=== PATIENT | female | born 1985 | race Caucasian/White ===

== ENCOUNTER 2020-04-26 08:29 | Outpatient (CLI) | payer BC ==
--- NOTE | 2020-04-26 09:22 | MMO ---
Bilateral MAMMO Bilat Diag [facility]. CLINICAL HISTORY: Patient is 34 years old and is seen for diagnostic exam,palpable abnormality, non-bloody discharge and pain in the right breast. The patient has the following family history of breast cancer: paternal aunt. The patient has no personal history of cancer. VIEWS: The views performed were: bilateral craniocaudal with tomosynthesis; bilateral mediolateral oblique with tomosynthesis; and bilateral mediolateral with tomosynthesis. FILMS COMPARED: The present examination has been compared to a prior imaging study performed at [facility] on 04/26/2020. This study has been interpreted with the assistance of computer-aided detection. MAMMOGRAM FINDINGS: There are scattered fibroglandular densities. No mammographic or sonograhic abnormality is seen at the site of palpable concern (4:00) and the subaerolar region in the right breast. There are no suspicious masses, suspicious calcifications, or new areas of architectural distortion. IMPRESSION: THERE IS NO MAMMOGRAPHIC EVIDENCE OF MALIGNANCY. AGE APPROPRIATE SCREENING BASED ON RISK FACTORS IS RECOMMENDED. THE RESULTS OF THIS EXAM WERE SENT TO THE PATIENT. ACR BI-RADS Category 2 - Benign finding MAMMOGRAPHY NOTE: 1. A negative mammogram report should not delay a biopsy if a dominant of clinically suspicious mass is present. 2. Approximately 10% to 15% of breast cancers are not detected by mammography. 3. Adenosis and dense breasts may obscure an underlying neoplasm. Reported by: JOSS ATWOOD MD Electonically Signed: [id number]
--- NOTE | 2020-04-26 09:28 | ULT ---
LIMITED RIGHT BREAST ULTRASOUND: HISTORY: Palpable abnormality at the 4 o'clock position of the right breast and right nipple discharge. FINDINGS: Correlation is made with mammogram of same day. Sonographic evaluation of the region of palpable concern at the 4 o'clock position of the right breas t demonstrates no abnormality. Retroareolar region of the right breast also demonstrates no signific ant abnormalities. IMPRESSION: 1. BIRADS category 2 - benign findings. Return to age-appropriate screening based on risk factors. 2. If there is concern for bloody nipple discharge, further evaluation with MRI would be helpful. POS: OFF
== END 2020-04-26 08:30 | disposition home or self-care (01) ==
LOC: BICMAMMO 08:29
PROVIDERS: ATTEND Family Medicine
DX: N64.4 Mastodynia (principal)
CPT/HCPCS: 77066; G0279